=== PATIENT | female | born 1975 | race Caucasian/White ===

== ENCOUNTER 2021-04-15 07:50 | Inpatient (IN) | payer MEDICAID, OTHER ==
[~2021-04-15] VITALS: Ht 160 cm; Wt 59.1 kg
[2021-04-15 09:09] LABS: BASOPHILS % 0.9 % (0.0-2.0); EOSINOPHILS % 1.2 % (0.0-5.0); HEMOGLOBIN. 11.6 g/dL (12.0-16.0); LYMPHOCYTES % 16.1 % (20.0-50.0); MEAN CORPUSCULAR HEMOGLOBIN 32.3 pg (28.0-32.0); MEAN CORPUSCULAR VOLUME 99.7 fL (81.0-99.0); MEAN PLATELET VOLUME 10.8 fl (7.4-10.4); MONOCYTES % 3.5 % (2.0-8.0); NEUTROPHILS % 78.3 % (40.0-76.0); PLATELET 237 x1000/uL (130-400); RED BLOOD CELL COUNT 3.61 mill/uL (4.2-5.4); RED CELL DISTRIBUTION WIDTH 18.8 % (11.6-14.6)
[2021-04-15 09:15] LABS: CHLORIDE 102 mEq/L (98-107)
[2021-04-15] MEDS ORDERED: SODIUM BICARBONATE 8.4% 1 MEQ/ML 50ML SYR IV ONE (09:45)
[2021-04-15] MEDS ORDERED: CALCIUM GLUCONATE 100MG/ML 10ML VIAL IV ONE (09:45)
[2021-04-15] MEDS ORDERED: DEXTROSE 50% WATER 50ML SYRINGE IV ONE (09:45)
[2021-04-15] MEDS ORDERED: INSULIN REGULAR (HUMULIN R) 300UNITS/3ML VIAL IV ONE (09:45)
[2021-04-15] MEDS ORDERED: ALBUTEROL (0.083%) 2.5MG/3ML NEB HHN ONE (09:45)
[2021-04-15] MEDS ORDERED: SODIUM POLYSTYRENE SULFONATE 15 G/60 ML BOT PO ONE (09:45)
[2021-04-15] MEDS ORDERED: DOXYCYCLINE HYCLATE 100 MG/VIAL IV ONE (09:45)
[2021-04-15] MEDS ORDERED: FUROSEMIDE 40MG/4ML VIAL IVP ONE (09:45)
[2021-04-15] MEDS ORDERED: CEFTRIAXONE 1 G PREMIX 50 ML IV SCH (10:00)
[2021-04-15] MEDS ORDERED: ACETAMINOPHEN 325MG TABLET PO PRN (10:15)
[2021-04-15] MEDS ORDERED: IPRATROPIUM/ALBUTEROL 0.5-3(2.5)MG/3ML NEB HHN PRN (10:15)
[2021-04-15] MEDS ORDERED: DIPHENHYDRAMINE 50MG/ML VIAL IV PRN (10:15)
[2021-04-15] MEDS: CLONIDINE 0.1MG TABLET PO PRN ×2 (10:46→23:15)
[2021-04-15] MEDS ORDERED: DOXYCYCLINE 100MG in DEXTROSE 5% WATER 100ML IV SCH (11:00)
[2021-04-15] MEDS ORDERED: AZITHROMYCIN 500 MG in DEXT 5% WATER 250 ML IV SCH (11:00)
[2021-04-15] MEDS ORDERED: CALCIUM GLUCONATE 2,000 MG in DEXT 5% WATER 90 ML IV SCH (11:00)
[2021-04-15] MEDS ORDERED: DOPAMINE 400MG/250ML PREMIX 250 ML IV PRN (11:30)
[2021-04-15 14:54] LABS: HEPATITIS A AB IGM NEGATIVE (NEGATIVE)
[2021-04-15 15:12] LABS: HEPATITIS B SURFACE ANTIGEN NEGATIVE
[2021-04-15] MEDS: HYDRALAZINE 20MG/ML VIAL IV PRN ×3 (21:44→21:54)
[2021-04-15] MEDS ORDERED: DEXTROSE 50% WATER 50ML SYRINGE IV NR (23:15)
[2021-04-15 23:25] LABS: BASOPHILS % 0.8 % (0.0-2.0); EOSINOPHILS % 1.3 % (0.0-5.0); HEMATOCRIT. 33.6 % (36.0-48.0); HEMOGLOBIN. 11.1 g/dL (12.0-16.0); LYMPHOCYTES % 16.5 % (20.0-50.0); MEAN CORPUSCULAR HEMOGLOBIN 32.5 pg (28.0-32.0); MEAN CORPUSCULAR VOLUME 98.2 fL (81.0-99.0); MEAN PLATELET VOLUME 9.9 fl (7.4-10.4); NEUTROPHILS % 77.4 % (40.0-76.0); PLATELET 204 x1000/uL (130-400); RED BLOOD CELL COUNT 3.42 mill/uL (4.2-5.4); RED CELL DISTRIBUTION WIDTH 18.5 % (11.6-14.6)
[2021-04-15 23:29] LABS: CHLORIDE 102 mEq/L (98-107)
[2021-04-16] VITALS (8 sets, daily range): BP systolic 102–196; BP diastolic 58–97
[2021-04-16 10:48] LABS: BASOPHILS % 1.1 % (0.0-2.0); EOSINOPHILS % 2.3 % (0.0-5.0); HEMATOCRIT. 25.7 % (36.0-48.0); HEMOGLOBIN. 8.8 g/dL (12.0-16.0); LYMPHOCYTES % 12.1 % (20.0-50.0); MEAN CORPUSCULAR HEMOGLOBIN 33.5 pg (28.0-32.0); MEAN CORPUSCULAR VOLUME 97.9 fL (81.0-99.0); MEAN PLATELET VOLUME 10.2 fl (7.4-10.4); MONOCYTES % 4.1 % (2.0-8.0); NEUTROPHILS % 80.4 % (40.0-76.0); PLATELET 190 x1000/uL (130-400); RED BLOOD CELL COUNT 2.62 mill/uL (4.2-5.4); RED CELL DISTRIBUTION WIDTH 18.2 % (11.6-14.6)
[2021-04-16] MEDS ORDERED: CEFTRIAXONE 1 G PREMIX 50 ML IV SCH (11:00)
[2021-04-16 11:25] LABS: CHLORIDE 103 mEq/L (98-107)
[2021-04-16] MEDS: AZITHROMYCIN 500 MG in DEXT 5% WATER 250 ML IV SCH (11:28)
[2021-04-16 11:34] LABS: HDL CHOLESTEROL 20 mg/dL (40-59)
[2021-04-16 11:38] LABS: LDL CHOLESTEROL 52 mg/dL (5-100)
[2021-04-16] MEDS: CEFTRIAXONE 1,000 MG in DEXTROSE 5% WATER 50 ML IV SCH (14:55)
[2021-04-16] MEDS: PANTOPRAZOLE SODIUM 40 MG/VIAL IV SCH (14:55)
[2021-04-16] MEDS ORDERED: HEPARIN SODIUM 1,000 UNIT/1ML VIAL IV NR (17:32)
[2021-04-16] MEDS: ONDANSETRON HCL 4MG/2ML INJ IV PRN (18:03)
[2021-04-16 21:38] LABS: INR 1.2; PROTHROMBIN TIME 12.5 sec (9.6-11.0)
[2021-04-16] MEDS: CLONIDINE 0.1MG TABLET PO PRN (22:37)
[2021-04-17] VITALS: BP 140/73
[2021-04-17 04:00] VITALS: BP 127/58
[2021-04-17 08:00] VITALS: BP 130/62
[2021-04-17] MEDS: PANTOPRAZOLE SODIUM 40 MG/VIAL IV SCH (09:30)
[2021-04-17] MEDS: ONDANSETRON HCL 4MG/2ML INJ IV PRN (09:30)
[2021-04-17 12:00] VITALS: BP 135/72
[2021-04-17] MEDS ORDERED: HEPARIN SODIUM 1,000 UNIT/1ML VIAL IV NR (12:49)
[2021-04-17 13:31] LABS: HEPATITIS B SURFACE ANTIGEN NEGATIVE
[2021-04-17 13:59] LABS: HEPATITIS A AB IGM NEGATIVE (NEGATIVE)
[2021-04-17] MEDS: CEFTRIAXONE 1,000 MG in DEXTROSE 5% WATER 50 ML IV SCH (15:00)
[2021-04-17 16:00] VITALS: BP 169/79
[2021-04-17] MEDS: AZITHROMYCIN 500 MG in DEXT 5% WATER 250 ML IV SCH (16:24)
[2021-04-17] MEDS: CLONIDINE 0.1MG TABLET PO PRN (17:52)
[2021-04-17 20:00] VITALS: BP 137/100
[2021-04-18] VITALS (13 sets, daily range): BP systolic 136–176; BP diastolic 63–100
[2021-04-18 06:27] LABS: FERRITIN 535 ng/mL (10-291)
[2021-04-18 06:32] LABS: BASOPHILS % 1.3 % (0.0-2.0); EOSINOPHILS % 6.1 % (0.0-5.0); LYMPHOCYTES % 24.1 % (20.0-50.0); MEAN CORPUSCULAR VOLUME 102.4 fL (81.0-99.0); MEAN PLATELET VOLUME 10.3 fl (7.4-10.4); MONOCYTES % 6.6 % (2.0-8.0); NEUTROPHILS % 61.9 % (40.0-76.0); PLATELET 152 x1000/uL (130-400); RED BLOOD CELL COUNT 1.76 mill/uL (4.2-5.4); RED CELL DISTRIBUTION WIDTH 18.1 % (11.6-14.6)
[2021-04-18 06:40] LABS: VITAMIN B12 SERUM >2000 pg/mL pg/mL (211-911)
[2021-04-18 06:51] LABS: HEMOGLOBIN. 5.8 g/dL (12.0-16.0)
[2021-04-18] MEDS: PANTOPRAZOLE SODIUM 40 MG/VIAL IV SCH (08:38)
[2021-04-18] MEDS: AZITHROMYCIN 500 MG in DEXT 5% WATER 250 ML IV SCH (11:06)
[2021-04-18] MEDS: CEFTRIAXONE 1,000 MG in DEXTROSE 5% WATER 50 ML IV SCH (14:10)
[2021-04-18] MEDS: CLONIDINE 0.1MG TABLET PO PRN (15:53)
[2021-04-18] MEDS: HYDRALAZINE 20MG/ML VIAL IV PRN (21:20)
[2021-04-19] VITALS (9 sets, daily range): BP systolic 157–188; BP diastolic 66–91
[2021-04-19] MEDS: CLONIDINE 0.1MG TABLET PO PRN (00:51)
[2021-04-19 04:19] LABS: BASOPHILS % 1.2 % (0.0-2.0); EOSINOPHILS % 5.2 % (0.0-5.0); HEMATOCRIT. 26.5 % (36.0-48.0); HEMOGLOBIN. 8.9 g/dL (12.0-16.0); LYMPHOCYTES % 19.4 % (20.0-50.0); MEAN CORPUSCULAR HEMOGLOBIN 31.9 pg (28.0-32.0); MEAN CORPUSCULAR VOLUME 95.1 fL (81.0-99.0); MEAN PLATELET VOLUME 10.1 fl (7.4-10.4); MONOCYTES % 5.9 % (2.0-8.0); NEUTROPHILS % 68.3 % (40.0-76.0); PLATELET 166 x1000/uL (130-400); RED BLOOD CELL COUNT 2.78 mill/uL (4.2-5.4); RED CELL DISTRIBUTION WIDTH 18.7 % (11.6-14.6)
[2021-04-19 04:25] LABS: CHLORIDE 103 mEq/L (98-107)
[2021-04-19 04:38] LABS: INR 1.1; PARTIAL THROMBOPLASTIN TIME 24.9 sec (23.4-31.0); PROTHROMBIN TIME 11.4 sec (9.6-11.0)
[2021-04-19] MEDS: HYDRALAZINE 20MG/ML VIAL IV PRN (05:16)
[2021-04-19] MEDS: PANTOPRAZOLE SODIUM 40 MG/VIAL IV SCH (09:44)
[2021-04-19] MEDS: AZITHROMYCIN 500 MG in DEXT 5% WATER 250 ML IV SCH (11:20)
[2021-04-19] MEDS: CEFTRIAXONE 1,000 MG in DEXTROSE 5% WATER 50 ML IV SCH (14:48)
[2021-04-19] MEDS: ONDANSETRON HCL 4MG/2ML INJ IV PRN (18:33)
[2021-04-19] MEDS: CARVEDILOL 3.125 MG TABLET PO SCH (21:00)
[2021-04-20] VITALS: BP 185/88
[2021-04-20 04:00] VITALS: BP 174/88
[2021-04-20] MEDS: CLONIDINE 0.1MG TABLET PO PRN (04:37)
[2021-04-20 08:00] VITALS: BP 178/86
[2021-04-20] MEDS: PANTOPRAZOLE SODIUM 40 MG/VIAL IV SCH (09:06)
[2021-04-20] MEDS: CARVEDILOL 3.125 MG TABLET PO SCH ×2 (09:07→21:05)
[2021-04-20 12:00] VITALS: BP 122/72
[2021-04-20 13:22] LABS: BASOPHILS % 0.9 % (0.0-2.0); EOSINOPHILS % 5.8 % (0.0-5.0); HEMATOCRIT. 24.8 % (36.0-48.0); HEMOGLOBIN. 8.3 g/dL (12.0-16.0); LYMPHOCYTES % 13.4 % (20.0-50.0); MEAN CORPUSCULAR HEMOGLOBIN 32.5 pg (28.0-32.0); MEAN CORPUSCULAR VOLUME 97.8 fL (81.0-99.0); MEAN PLATELET VOLUME 10.4 fl (7.4-10.4); MONOCYTES % 6.7 % (2.0-8.0); NEUTROPHILS % 73.2 % (40.0-76.0); PLATELET 168 x1000/uL (130-400); RED BLOOD CELL COUNT 2.54 mill/uL (4.2-5.4); RED CELL DISTRIBUTION WIDTH 18.8 % (11.6-14.6)
[2021-04-20] MEDS ORDERED: COR3 PO (13:46)
[2021-04-20] MEDS ORDERED: INSU100I28 SQ (13:46)
[2021-04-20] MEDS ORDERED: PANT40TA51 MT (13:46)
[2021-04-20] MEDS: CEFTRIAXONE 1,000 MG in DEXTROSE 5% WATER 50 ML IV SCH (14:41)
[2021-04-20 16:00] VITALS: BP 177/94
[2021-04-20] MEDS: HYDRALAZINE 20MG/ML VIAL IV PRN (17:09)
[2021-04-20 20:00] VITALS: BP 167/83
[2021-04-21] VITALS (7 sets, daily range): BP systolic 123–183; BP diastolic 69–90
[2021-04-21] MEDS: CLONIDINE 0.1MG TABLET PO PRN (03:58)
[2021-04-21 07:41] LABS: EOSINOPHILS % 5.9 % (0.0-5.0); HEMATOCRIT. 24.9 % (36.0-48.0); HEMOGLOBIN. 8.3 g/dL (12.0-16.0); LYMPHOCYTES % 13.5 % (20.0-50.0); MEAN CORPUSCULAR HEMOGLOBIN 32.3 pg (28.0-32.0); MEAN CORPUSCULAR VOLUME 96.6 fL (81.0-99.0); MEAN PLATELET VOLUME 10.4 fl (7.4-10.4); MONOCYTES % 6.6 % (2.0-8.0); PLATELET 175 x1000/uL (130-400); RED BLOOD CELL COUNT 2.58 mill/uL (4.2-5.4); RED CELL DISTRIBUTION WIDTH 18.3 % (11.6-14.6)
[2021-04-21] MEDS: PANTOPRAZOLE SODIUM 40 MG/VIAL IV SCH (09:19)
[2021-04-21] MEDS: CARVEDILOL 3.125 MG TABLET PO SCH (09:20)
[2021-04-21] MEDS ORDERED: LEVOFLOXACIN 250MG TABLET PO SCH (13:00)
[2021-04-21] MEDS ORDERED: VANCOMYCIN 1250MG in DEXTROSE 5% WATER 250ML IV SCH (15:00)
[2021-04-21] MEDS ORDERED: LEVO750T46 MT (15:55)
[2021-04-21] MEDS ORDERED: AMLO5TAB88 MT (17:19)
[2021-04-21] MEDS ORDERED: AMLODIPINE 5MG TABLET PO SCH (17:30)
[2021-04-23] MEDS ORDERED: LEVOFLOXACIN 500MG TABLET PO SCH (11:00)
== END 2021-04-21 19:05 | disposition home or self-care (01) | DRG 52 ==
LOC: ER 07:56 → MICUSO 10:43 → 7EST 19:15
PROVIDERS: ADMIT Internal Medicine; ATTEND Internal Medicine
PROC: 5A1D70Z Performance of Urinary Filtration, Intermittent, Less than 6 Hours Per Day (ICD-10-PCS; 2021-04-15)
PROC: 5A1D70Z Performance of Urinary Filtration, Intermittent, Less than 6 Hours Per Day (ICD-10-PCS; 2021-04-17)
PROC: 30233N1 Transfusion of Nonautologous Red Blood Cells into Peripheral Vein, Percutaneous Approach (ICD-10-PCS; principal; 2021-04-18)
PROC: 5A1D70Z Performance of Urinary Filtration, Intermittent, Less than 6 Hours Per Day (ICD-10-PCS; 2021-04-19)
DX: G93.49 Other encephalopathy (principal); I21.4 Non-ST elevation (NSTEMI) myocardial infarction; I13.2 Hypertensive heart and chronic kidney disease with heart failure and with stage 5 chronic kidney disease, or end stage renal disease; E72.20 Disorder of urea cycle metabolism, unspecified; K92.2 Gastrointestinal hemorrhage, unspecified; E11.22 Type 2 diabetes mellitus with diabetic chronic kidney disease; E87.5 Hyperkalemia; I27.20 Pulmonary hypertension, unspecified; I50.23 Acute on chronic systolic (congestive) heart failure; I16.0 Hypertensive urgency; Z20.822 Contact with and (suspected) exposure to COVID-19; N18.6 End stage renal disease; D15.1 Benign neoplasm of heart; D64.9 Anemia, unspecified; I34.0 Nonrheumatic mitral (valve) insufficiency; R00.1 Bradycardia, unspecified; I50.20 Unspecified systolic (congestive) heart failure; Z86.16 Personal history of COVID-19; Z99.2 Dependence on renal dialysis; Z91.15 Patient's noncompliance with renal dialysis; Z88.8 Allergy status to other drugs, medicaments and biological substances; Z79.899 Other long term (current) drug therapy; Z91.19 Patient's noncompliance with other medical treatment and regimen
CPT/HCPCS: 36415; 71045; 76700; 80048; 80053; 80061; 82140; 82270; 82607; 82728; 82746; 82962; 83540; 83550; 83735; 83880; 84132; 84443; 84484; 85018; 85025; 85044; 86160; 86162; 86705; 86709; 86803; 86850; 86900; 86920; 87340; 87426; 93005; 93306; 93970; 97162; 97165; 99291; C1893; C9113; J0360; J0456; J0610; J0696; J1200; J1644; J1815; J1940; J2405; J3370; J3490; J7040; J7060; P9016

== ENCOUNTER 2021-07-10 07:26 | Inpatient (IN) | payer MEDICAID ==
[~2021-07-10] VITALS: Ht 157.5 cm; Wt 59.9 kg
[~2021-07-10 07:26] MED LIST: AMLO5TAB88 MT; COR3 PO; INSU100I28 SQ; LEVO750T46 MT; PANT40TA51 MT
[2021-07-10 08:10] LABS: BASOPHILS % 1.3 % (0.0-2.0); EOSINOPHILS % 2.1 % (0.0-5.0); HEMOGLOBIN. 11.4 g/dL (12.0-16.0); LYMPHOCYTES % 13.9 % (20.0-50.0); MEAN CORPUSCULAR HEMOGLOBIN 30.6 pg (28.0-32.0); MEAN CORPUSCULAR VOLUME 96.5 fL (81.0-99.0); MEAN PLATELET VOLUME 10.1 fl (7.4-10.4); MONOCYTES % 6.2 % (2.0-8.0); NEUTROPHILS % 76.5 % (40.0-76.0); PLATELET 345 x1000/uL (130-400); RED BLOOD CELL COUNT 3.73 mill/uL (4.2-5.4); RED CELL DISTRIBUTION WIDTH 16.4 % (11.6-14.6)
[2021-07-10 08:17] LABS: CHLORIDE 100 mEq/L (98-107)
[2021-07-10 08:32] LABS: INR 1.1; PROTHROMBIN TIME 12.2 sec (9.6-11.0)
[2021-07-10] MEDS ORDERED: FUROSEMIDE 100MG/10ML VIAL IV STA (08:49)
[2021-07-10] MEDS ORDERED: ALBUTEROL (0.083%) 2.5MG/3ML NEB HHN ONE (09:00)
[2021-07-10] MEDS ORDERED: SODIUM BICARBONATE 8.4% 1 MEQ/ML 50ML SYR IV ONE (09:00)
[2021-07-10] MEDS ORDERED: DEXTROSE 50% WATER 50ML SYRINGE IV ONE (09:00)
[2021-07-10] MEDS ORDERED: INSULIN REGULAR (HUMULIN R) 300UNITS/3ML VIAL IV ONE (09:00)
[2021-07-10] MEDS ORDERED: CALCIUM CHLORIDE 1GM/10ML SYR IV ONE (09:00)
[2021-07-10 12:00] VITALS: BP 198/96
[2021-07-10] MEDS ORDERED: ACETAMINOPHEN 325MG TABLET PO PRN (12:00)
[2021-07-10] MEDS ORDERED: HYDRALAZINE 20MG/ML VIAL IV PRN (12:00)
[2021-07-10] MEDS ORDERED: DOCUSATE SODIUM 100MG CAPSULE PO PRN (12:00)
[2021-07-10] MEDS: AMLODIPINE 10MG TABLET PO SCH (12:00)
[2021-07-10] MEDS ORDERED: GUAIFENESIN 200MG/10ML SUGAR FREE UDC PO PRN (12:00)
[2021-07-10] MEDS ORDERED: MAGNESIUM/ALUMINUM HYDROXIDE/SIMETHICONE 30ML UDC PO PRN (12:00)
[2021-07-10] MEDS ORDERED: CLONIDINE 0.1MG TABLET PO PRN (12:00)
[2021-07-10] MEDS ORDERED: ONDANSETRON HCL 4MG/2ML INJ IV PRN (12:00)
[2021-07-10] MEDS ORDERED: HYDROCODONE/ACETAMINOPHEN 5/325MG TABLET PO PRN (12:00)
[2021-07-10] MEDS ORDERED: DIPHENHYDRAMINE 50MG/ML VIAL IV PRN (12:00)
[2021-07-10] MEDS: CARVEDILOL 6.25 MG TABLET PO SCH ×2 (12:00→21:15)
[2021-07-10] MEDS ORDERED: NALOXONE HCL 0.4MG/ML VIAL IV PRN (12:15)
[2021-07-10] MEDS ORDERED: DEXTROSE 50% WATER 50ML SYRINGE IV PRN (13:30)
[2021-07-10 14:18] VITALS: BP 212/109
[2021-07-10 14:36] LABS: HEPATITIS B SURFACE ANTIGEN NEGATIVE
[2021-07-10 16:00] VITALS: BP 181/94
[2021-07-10] MEDS: BLOOD SUGAR DIAGNOSTIC STRIP TEST SCH ×2 (17:00→21:14)
[2021-07-10] MEDS: INSULIN LISPRO 100 UNITS/ML SUBCUT SCH ×2 (17:01→21:00)
[2021-07-10 18:08] VITALS: BP 147/82
[2021-07-10 20:00] VITALS: BP 125/59
[2021-07-11] VITALS: BP 122/58
[2021-07-11 04:00] VITALS: BP 109/49
[2021-07-11] MEDS: BLOOD SUGAR DIAGNOSTIC STRIP TEST SCH ×4 (06:27→21:45)
[2021-07-11] MEDS: INSULIN LISPRO 100 UNITS/ML SUBCUT SCH ×4 (06:27→21:00)
[2021-07-11 06:43] LABS: BASOPHILS % 1.2 % (0.0-2.0); EOSINOPHILS % 1.8 % (0.0-5.0); HEMATOCRIT. 30.6 % (36.0-48.0); LYMPHOCYTES % 15.4 % (20.0-50.0); MEAN CORPUSCULAR HEMOGLOBIN 31.4 pg (28.0-32.0); MEAN PLATELET VOLUME 9.8 fl (7.4-10.4); MONOCYTES % 7.8 % (2.0-8.0); NEUTROPHILS % 73.8 % (40.0-76.0); PLATELET 282 x1000/uL (130-400); RED BLOOD CELL COUNT 3.19 mill/uL (4.2-5.4); RED CELL DISTRIBUTION WIDTH 16.4 % (11.6-14.6)
[2021-07-11 06:53] LABS: CHLORIDE 101 mEq/L (98-107)
[2021-07-11 08:00] VITALS: BP 124/64
[2021-07-11] MEDS ORDERED: INFLUENZA VACCINE 05/PF 0.5 ML SYRINGE IM ONE (09:00)
[2021-07-11] MEDS: AMLODIPINE 10MG TABLET PO SCH (09:04)
[2021-07-11] MEDS: CARVEDILOL 6.25 MG TABLET PO SCH ×2 (09:04→21:47)
[2021-07-11 12:00] VITALS: BP 124/66
[2021-07-11 16:00] VITALS: BP 113/78
[2021-07-11 20:00] VITALS: BP 126/63
[2021-07-12] VITALS (7 sets, daily range): BP systolic 112–156; BP diastolic 61–78
[2021-07-12 06:18] LABS: BASOPHILS % 1.4 % (0.0-2.0); EOSINOPHILS % 3.5 % (0.0-5.0); HEMATOCRIT. 31.6 % (36.0-48.0); HEMOGLOBIN. 10.2 g/dL (12.0-16.0); LYMPHOCYTES % 19.4 % (20.0-50.0); MEAN CORPUSCULAR HEMOGLOBIN 30.6 pg (28.0-32.0); MEAN CORPUSCULAR VOLUME 94.7 fL (81.0-99.0); MEAN PLATELET VOLUME 9.8 fl (7.4-10.4); MONOCYTES % 7.6 % (2.0-8.0); NEUTROPHILS % 68.1 % (40.0-76.0); PLATELET 274 x1000/uL (130-400); RED BLOOD CELL COUNT 3.33 mill/uL (4.2-5.4)
[2021-07-12] MEDS: BLOOD SUGAR DIAGNOSTIC STRIP TEST SCH ×2 (06:40→11:40)
[2021-07-12] MEDS: INSULIN LISPRO 100 UNITS/ML SUBCUT SCH ×2 (07:10→12:10)
[2021-07-12] MEDS: CARVEDILOL 6.25 MG TABLET PO SCH (09:06)
[2021-07-12] MEDS: AMLODIPINE 10MG TABLET PO SCH (09:06)
== END 2021-07-12 17:20 | disposition home or self-care (01) | DRG 199 ==
LOC: ER 07:26 → 7EST 10:40 → EDBEDREQ 10:44 → ENRESERV 10:55
PROVIDERS: ADMIT Hospitalist; ATTEND Hospitalist
PROC: 5A1D70Z Performance of Urinary Filtration, Intermittent, Less than 6 Hours Per Day (ICD-10-PCS; principal; 2021-07-10)
PROC: 5A1D70Z Performance of Urinary Filtration, Intermittent, Less than 6 Hours Per Day (ICD-10-PCS; 2021-07-11)
DX: I16.0 Hypertensive urgency (principal); I50.43 Acute on chronic combined systolic (congestive) and diastolic (congestive) heart failure; I27.20 Pulmonary hypertension, unspecified; N18.6 End stage renal disease; E87.5 Hyperkalemia; I13.2 Hypertensive heart and chronic kidney disease with heart failure and with stage 5 chronic kidney disease, or end stage renal disease; E11.22 Type 2 diabetes mellitus with diabetic chronic kidney disease; F32.A Depression, unspecified; I34.0 Nonrheumatic mitral (valve) insufficiency; Z20.822 Contact with and (suspected) exposure to COVID-19; Z91.19 Patient's noncompliance with other medical treatment and regimen; Z91.15 Patient's noncompliance with renal dialysis; Z99.2 Dependence on renal dialysis; Z88.8 Allergy status to other drugs, medicaments and biological substances; Z79.4 Long term (current) use of insulin; Z79.899 Other long term (current) drug therapy
CPT/HCPCS: 36415; 71045; 80048; 80053; 82962; 83036; 85025; 86705; 86709; 86803; 87340; 87426; 90686; 93005; 93970; 94640; 99291; J0360; J1815; J1940; J3490